=== PATIENT | male | born 1945 | race Caucasian/White ===

== ENCOUNTER 2017-06-21 15:54 | Emergency (ER) | payer OTHER ==
[~2017-06-21] VITALS: Ht 172.7 cm; Wt 88.3 kg
[~2017-06-21 15:54] MED LIST: DEXL60CA4 PO; OMEP40CA PO; POTA-331 PO
[2017-06-21 15:57] VITALS: TEMP 37.2; Ht 172.7 cm; Wt 88.3 kg
[2017-06-21] MEDS ORDERED: CEFTRIAXONE SOD INJ 1 GM ADDVIAL IV STA (16:30)
--- NOTE | 2017-06-21 17:21 | DIAGNOSTIC IMAGING REPORT ---
RIGHT ANKLE 3 VIEWS HISTORY: Right ankle RIGHT, REDNESS/WARMTH/SWELLING COMPARISON: None. FINDINGS: There is no fracture or dislocation. Diffuse soft tissue swelling. 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 No bony erosions. Plantar and posterior calcaneal spurs. No radiopaque foreign bodies. IMPRESSION: Diffuse soft tissue swelling within the right ankle. No fractures. No underlying bony destruction. Electronically signed by: Magen Cai M.D. 06/21/2017 5:20 PM Dictated Date/Time: 06/21/2017 5:18 PM
[2017-06-21 17:29] LABS: BASO % 0.5 %; BASO ABS # 0.04 K/uL (0-0.2); COMPLETE YES; EOS % 2.3 %; HEMATOCRIT 41.9 % (42-52); IG% 0.1 %; LYMPH % 17.6 %; LYMPH ABS # 1.38 K/uL (1.2-3.4); MEAN CELL VOLUME 84.1 fL (80-100); MEAN CORPUSCULAR HEMOGLOBIN 30.7 pg (25-34); MEAN CORPUSCULAR HGB CONC 36.5 g/dl (32-36); MONO % 14.7 %; NEUT % 64.8 %; PLATELET COUNT 227 K/uL (130-400); RED BLOOD COUNT 4.98 M/uL (4.7-6.1); WHITE BLOOD COUNT 7.84 K/uL (4.8-10.8)
[2017-06-21 17:38] LABS: BUN/CREATININE RATIO 10.5 (10-20); C-REACTIVE PROTEIN 9.38 mg/dl (0-0.29); CALCIUM 9.3 mg/dl (8.5-10.1); CREATININE 1.1 mg/dl (0.60-1.40); PARTIAL THROMBOPLASTIN RATIO 1.2; POTASSIUM 2.9 mmol/L (3.5-5.1); PROTHROMBIN TIME (PATIENT) 11.1 SECONDS (9.0-12.0)
[2017-06-21 17:41] LABS: ALB/GLOB RATIO 0.9 (0.9-2)
[2017-06-21] MEDS ORDERED: POTASSIUM CHLORIDE 10 MEQ TABCR PO STA (18:24)
[2017-06-21] MEDS ORDERED: POTA10CA28 PO (18:28)
[2017-06-21] MEDS ORDERED: CEPH500C2 PO (18:28)
[2017-06-21] MEDS ORDERED: SULF800T23 PO (18:28)
--- NOTE | 2017-06-21 18:30 | EMERGENCY ROOM VISIT NOTE ---
ED Visit Note First contact with patient: 16:02 CHIEF COMPLAINT: Right ankle pain, redness and swelling with fever times one day HISTORY OF PRESENT ILLNESS: Patient is a 72-year-old white male with past medical history significant for depression, hypertension and Andino's esophagitis who presents to the emergency department By his from a [facility] [employer] [facility] for evaluation of right ankle pain and fever. His symptoms started yesterday. He noted that his right ankle was sore to the touch, but did not notice any redness or swelling. He also subjectively felt feverish, fatigue and malaise, but did not check his temperature with a thermometer. He did take Tylenol last evening. His got him an ankle brace , which made his symptoms worse. He denies any injury to the ankle. When he woke up this morning, the right ankle continued to be sore and they noted that it was swollen. He again subjectively felt feverish and had chills, but did not check temperature with a thermometer and did not take any medications. Patient's states that he asked for his heavy winter coat because he was so chilled, which prompted her to call the PCP. They were unable to see him, so directed him to either then ED or in urgent care center. They went to the [facility] in [place]. He was found to be febrile there with a temperature of 102.2F orally. He had just taken 650 mg of Tylenol prior to going to the urgent care center. They noted his ankle to be red and warm and swollen and thus referred him to the emergency department. Initially, patient and his denied any history of cellulitis or abscesses, but then, after further questioning he was treated with cephalexin for a sore on the right pretibial region many years ago. The patient has been complaining of dry skin on his legs for some time, and does admit to scratching and rubbing the area. He denies any other joint pain or swelling. No pain radiating up the leg or in the calf. He does have some discomfort with weightbearing. He denies any chest pain, palpitations or shortness of breath. No anorexia, abdominal pain, nausea or vomiting. He denies any urinary symptoms. He has chronic diarrhea, no melena or hematochezia. He rates his discomfort a 6/10. REVIEW OF SYSTEMS: Review of systems as per HPI. All other systems reviewed were negative. 10 systems reviewed. PMH: Electronic medical records are reviewed and summarized as above/below. See Problem List. SOCIAL HISTORY: Patient lives at home with his . Former smoker, quit 20 years ago. He is retired. PHYSICAL EXAM: Vital Signs: Reviewed Nurse's notes. Temperature 37.2C orally. He is not tachycardic. GENERAL: Patient is a pleasant, well-appearing 72 year old white male who is awake and alert and in no acute distress. LUNGS: Clear to auscultation and breath sounds equal, no wheezes, rales, or rhonchi. HEART: Regular rate and rhythm. ABDOMEN: Soft, nontender, no hepatosplenomegaly, or masses. NEUROLOGICAL: Alert and cooperative. Sensory and motor functions grossly intact. INTEGUMENTARY: Examination of the bilateral lower extremities show mild scaling , with several excoriated areas. The skin of the right lower leg/ankle is erythematous, warm and slightly tender to palpation. There is no lymphangitic streaking. No petechiae noted. MUSCULOSKELETAL: The right ankle is circumferentially swollen, erythematous, and edematous. Ankle is moderately tender to palpation over both the medial and the lateral malleolus. Ankle range of motion is full. Distal pulses are intact. Sensation is intact. Right calf is soft and nontender. No palpable cords. No pitting edema. EMERGENCY DEPARTMENT COURSE: The patient was seen and examined as above. His old records were reviewed. IV lock was initiated. Laboratory studies were collected including CBC with differential, sedimentation rate, CRP, coags, CMP, blood cultures 2 and a [id number] lactic acid. X-rays of the right ankle were obtained which noted mild soft tissue swelling, no acute bony abnormality. The patient was given ceftriaxone 1 g IV. Laboratory studies noted a normal white count 7800, no left shift or bandemia. Slight nonspecific elevation of the sedimentation rate at 23 and CRP at 9.38. The patient is noted to be hypokalemic with a potassium of 2.9. No other gross electrolyte abnormalities noted. Renal function is normal. There is no lactic acidosis, lactic is 1.16. Coags are unremarkable. All laboratory and diagnostic imaging studies were reviewed with attending physician who also independently evaluated the patient. He appears to have a localized cellulitis to the right lower leg, I suspect related to his dry skin and excoriations. The patient has been febrile, is afebrile here with antipyretics on board. He is otherwise nontoxic in appearance. It was felt that he could be discharged to home on oral antibiotics, with plan for close follow-up in the emergency department in 24 hours, sooner for worsening symptoms. He was in agreement with this. Differential diagnoses also injured to included cellulitis, superficial thrombophlebitis, DVT, septic joint, acute gouty arthropathy, among others. The patient will return to the emergency department in 24 hours for recheck, and possible repeat dose of IV antibiotics. He certainly should return immediately if his symptoms are worsening. IV lock was left in place in the right hand for follow-up tomorrow. He will be placed on Keflex and Bactrim in the interim. He was encouraged to check his temperature regularly with a thermometer, can use Tylenol and ibuprofen as needed for pain and fever. Patient and his family expressed understanding of this. He was discharged home in good condition. Vital signs are stable at that time. Medication reconciliation: I attest that I have personally reviewed the patient' s current medication list. Blood pressure screening : Patient was found to have normal blood pressure on screening and does not require follow-up. RIGHT ANKLE 3 VIEWS HISTORY: Right ankle RIGHT, REDNESS/WARMTH/SWELLING COMPARISON: None. FINDINGS: There is no fracture or dislocation. Diffuse soft tissue swelling. 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 No bony erosions. Plantar and posterior calcaneal spurs. No radiopaque foreign bodies. IMPRESSION: Diffuse soft tissue swelling within the right ankle. No fractures. No underlying bony destruction. Problem List Medical Problems: (1) Acid reflux Status: Chronic (2) Depressive Disorder Nec Status: Chronic (3) Diarrhea Status: Resolved (4) Diarrhea Status: Resolved (5) Hypertension Nos Status: Chronic (6) Hypokalemia Status: Resolved (7) Near syncope Status: Resolved (8) Scalp laceration Status: Resolved Surgical Problems: (1) Hx of appendectomy Status: Resolved (2) Hx of cholecystectomy Status: Resolved Current/Historical Medications Scheduled Cephalexin Monohydrate (Keflex), 500 MG PO QID Fluoxetine Hcl (Pmdd) (Fluoxetine), 60 MG PO DAILY Hydrochlorothiazide (Hctz), 25 MG PO DAILY Potassium Chloride (Micro-K Ext Rel), 10 MEQ PO BID Sulfa/Trimethoprim (Bactrim Ds 800MG/160MG), 1 TAB PO BID Allergies Coded Allergies: No Known Allergies (Verified , 06/21/17) Vital Signs Date Time Temp Pulse Resp B/P (MAP) Pulse Ox O2 Delivery O2 Flow Rate FiO2 06/21/17 19:55 66 18 136/81 96 06/21/17 19:00 66 18 136/81 96 Room Air 06/21/17 15:57 37.2 76 18 122/77 95 Room Air Laboratory Results 06/21/17 16:55 Red Blood Count 4.98, Mean Corpuscular Volume 84.1, Mean Corpuscular Hemoglobin 30.7, Mean Corpuscular Hemoglobin Concent 36.5, Mean Platelet Volume 10.0, Neutrophils (%) (Auto) 64.8, Lymphocytes (%) (Auto) 17.6, Monocytes (%) (Auto) 14.7, Eosinophils (%) (Auto) 2.3, Basophils (%) (Auto) 0.5, Neutrophils # (Auto ) 5.08, Lymphocytes # (Auto) 1.38, Monocytes # (Auto) 1.15, Eosinophils # (Auto ) 0.18, Basophils # (Auto) 0.04 06/21/17 16:55 Test 06/21/17 16:55 06/21/17 17:04 White Blood Count 7.84 K/uL (4.8-10.8) Red Blood Count 4.98 M/uL (4.7-6.1) Hemoglobin 15.3 g/dL (14.0-18.0) Hematocrit 41.9 % (42-52) Mean Corpuscular Volume 84.1 fL (80-100) Mean Corpuscular Hemoglobin 30.7 pg (25-34) Mean Corpuscular Hemoglobin Concent 36.5 g/dl (32-36) Platelet Count 227 K/uL (130-400) Mean Platelet Volume 10.0 fL (7.4-10.4) Neutrophils (%) (Auto) 64.8 % Lymphocytes (%) (Auto) 17.6 % Monocytes (%) (Auto) 14.7 % Eosinophils (%) (Auto) 2.3 % Basophils (%) (Auto) 0.5 % Neutrophils # (Auto) 5.08 K/uL (1.4-6.5) Lymphocytes # (Auto) 1.38 K/uL (1.2-3.4) Monocytes # (Auto) 1.15 K/uL (0.11-0.59) Eosinophils # (Auto) 0.18 K/uL (0-0.5) Basophils # (Auto) 0.04 K/uL (0-0.2) RDW Standard Deviation 39.1 fL (36.4-46.3) RDW Coefficient of Variation 12.9 % (11.5-14.5) Immature Granulocyte % (Auto) 0.1 % Immature Granulocyte # (Auto) 0.01 K/uL (0.00-0.02) Erythrocyte Sedimentation Rate 23 mm/hr (0-14) Prothrombin Time 11.1 SECONDS (9.0-12.0) Prothromb Time International Ratio 1.0 (0.9-1.1) Activated Partial Thromboplast Time 30.5 SECONDS (21.0-31.0) Partial Thromboplastin Ratio 1.2 Anion Gap 8.0 mmol/L (3-11) Est Creatinine Clear Calc Drug Dose 67.5 ml/min Estimated GFR () 78.4 Estimated GFR (Non- 67.7 BUN/Creatinine Ratio 10.5 (10-20) Calcium Level 9.3 mg/dl (8.5-10.1) Total Bilirubin 1.1 mg/dl (0.2-1) Aspartate Amino Transf (AST/SGOT) 27 U/L (15-37) Alanine Aminotransferase (ALT/SGPT) 39 U/L (12-78) Alkaline Phosphatase 76 U/L (45-117) C-Reactive Protein 9.38 mg/dl (0-0.29) Total Protein 7.7 gm/dl (6.4-8.2) Albumin 3.7 gm/dl (3.4-5.0) Globulin 4.0 gm/dl (2.5-4.0) Albumin/Globulin Ratio 0.9 (0.9-2) Bedside Lactic Acid Venous 1.16 mmol/L (0.90-1.70) Medications Administered Medications (Trade) Dose Ordered Sig/Leonor Route Start Time Stop Time Status Last Admin Dose Admin Ceftriaxone Sodium (Rocephin Inj) 1 gm NOW STAT IV 06/21/17 16:30 10/6/17 16:32 DC 06/21/17 17:33 1 GM Potassium Chloride (Klor-Con M10) 80 meq NOW STAT PO 06/21/17 18:24 06/21/17 18:25 DC 06/21/17 19:46 80 MEQ Departure Information Impression Primary Impression: Cellulitis of right lower extremity Prescriptions Potassium Chloride (Micro-K Ext Rel) 10 Meq Capcr 10 MEQ PO BID, #14 CAP Prov: Keke Fofana PA 06/21/17 Sulfa/Trimethoprim (Bactrim Ds 800MG/160MG) Tab 1 TAB PO BID, #20 TAB Prov: Keke Fofana PA 06/21/17 Cephalexin Monohydrate (KEFLEX) 500 Mg Cap 500 MG PO QID, #40 CAP Prov: Keke Fofana PA 06/21/17 Referrals Pepe Rowe M.D. (PCP) Patient Instructions [facility] Additional Instructions Cephalexin(Keflex) 500mg: Take one pill four times daily for 10 days for your skin infection. All antibiotics can cause diarrhea. If this occurs and you feel worse or it does not resolve in 1-2 days follow up with your doctor or return to the Emergency Department as this could be signs of serious underlying problems. Any medication can cause an allergic reaction, stop the pills immediately and return to the ER for rash, hives, breathing difficulties, or swelling. Trimethoprim-Sulfamethoxazole(Bactrim DS): Take one pill twice daily for 10 days for your skin infection. All antibiotics can cause diarrhea. If this occurs and you feel worse or it does not resolve in 1-2 days follow up with your doctor or return to the Emergency Department as this could be signs of serious underlying problems. Any medication can cause an allergic reaction, stop the pills immediately and return to the ER for rash, hives, breathing difficulties, or swelling. Potassium chloride 10 mEq: Take 1 capsule twice daily for 7 days. Potassium level will need to be rechecked when you follow up with your PCP. Ibuprofen(Motrin, Advil) may be used for fever or pain. Use 600mg every six hours as needed. Take with food. Avoid using more than 2400mg in a 24 hour period. Do not use 2400mg per day for more than three consecutive days without physician direction. Prolonged inappropriate use can lead to stomach upset or ulcers. (AND/OR) Acetaminophen(Tylenol) may be used for fever or pain. Use 1000mg every six hours as needed. Avoid using more than 3000mg in a 24 hour period. Warm compresses to the affected area 4 times daily for 15-20 minutes. Rest and drink plenty of fluids. Continue current medications. Return to the ER in 24 hours for recheck, return immediately for severe pain, uncontrolled fevers, spreading redness, or any worsening of your condition.
[2017-06-21 19:55] VITALS: BP 136/81; PULSE 66; O2SAT 96
[2017-06-22] MEDS ORDERED: HYDR25TA4 PO (23:38)
[2017-06-22] MEDS ORDERED: FLUO20CA20 PO (23:38)
== END 2017-06-21 20:03 | disposition home or self-care (01) ==
LOC: C.EDB 15:55 → C.EDC 20:03
DX: L03.115 Cellulitis of right lower limb (principal); Z87.891 Personal history of nicotine dependence; K21.9 Gastro-esophageal reflux disease without esophagitis; F32.9 Major depressive disorder, single episode, unspecified; I10 Essential (primary) hypertension

== ENCOUNTER 2017-06-22 15:19 | Emergency (ER) | payer OTHER ==
[~2017-06-22] VITALS: Ht 172.7 cm; Wt 88.2 kg
[~2017-06-22 15:19] MED LIST changes: +CEPH500C2 PO; +POTA10CA28 PO; +SULF800T23 PO
[2017-06-22 15:24] VITALS: TEMP 36.5; Ht 172.7 cm; Wt 88.2 kg
[2017-06-22] MEDS ORDERED: CEFTRIAXONE SOD INJ 1 GM ADDVIAL IV STA (15:36)
[2017-06-22 16:56] VITALS: BP 124/80; PULSE 78; O2SAT 98
--- NOTE | 2017-06-22 19:55 | EMERGENCY ROOM VISIT NOTE ---
History First contact with patient: 15:21 Chief Complaint: WOUND RECHECK Stated Complaint: NEED ANTIBIOTICS Nursing Triage Summary: Patient states he has a wound on his right ankle and his is here to get antibiotics. Pt IV in place from yesterday's visit to the ER. History of Present Illness The patient is a 72 year old male who presents to the Emergency Room for a recheck of right ankle cellulitis. The patient was seen in the emergency department yesterday, and administered IV Rocephin, and provided prescriptions for Keflex and Bactrim DS. The reports that she picked up his prescriptions this morning, but did not administer any of the antibiotics because there was no indication on the patient's discharge summary of when he should start the medications. The patient reports that when he awoke this morning, there was no swelling or redness of the ankle. Throughout the day, he reports that the swelling and redness has returned. He does not feel that the redness or swelling is as bad as yesterday. The patient denies any pain or fever. Review of Systems 6 system review was performed and was negative except for pertinent positives and negatives as indicated in history of present illness Past Medical/Surgical History Medical Problems: (1) Acid reflux (2) Depressive Disorder Nec (3) Diarrhea (4) Diarrhea (5) Hypertension Nos (6) Hypokalemia (7) Near syncope (8) Scalp laceration Surgical Problems: (1) Hx of appendectomy (2) Hx of cholecystectomy Social History Smoking Status: Former Smoker Alcohol Use: none Marital Status: Housing Status: lives with significant other Occupation Status: retired Current/Historical Medications Scheduled Cephalexin Monohydrate (Keflex), 500 MG PO QID Fluoxetine Hcl (Pmdd) (Fluoxetine), 60 MG PO DAILY Hydrochlorothiazide (Hctz), 25 MG PO DAILY Potassium Chloride (Micro-K Ext Rel), 10 MEQ PO BID Sulfa/Trimethoprim (Bactrim Ds 800MG/160MG), 1 TAB PO BID Physical Exam Vital Signs Date Time Temp Pulse Resp B/P (MAP) Pulse Ox O2 Delivery O2 Flow Rate FiO2 06/22/17 16:56 78 18 124/80 98 06/22/17 15:24 36.5 80 17 94 Room Air Physical Exam CONSTITUTIONAL: Healthy and well nourished. Alert and oriented X 3 with positive affect. MUSCULOSKELETAL: Compared to my exam yesterday, the patient does have slightly worsening edema, but the erythema has improved. There is no significant extension of the erythema beyond the demarcated borders. Pedal pulses are intact. No proximal lymphangitic streaking. INTEGUMENTARY: No rash or other significant dermatologic conditions noted. NEUROLOGIC: No focal neurologic deficits noted. Medical Decision & Procedures Medications Administered Medications (Trade) Dose Ordered Sig/Leonor Route Start Time Stop Time Status Last Admin Dose Admin Ceftriaxone Sodium (Rocephin Inj) 1 gm NOW STAT IV 06/22/17 15:36 06/22/17 15:38 DC 06/22/17 16:16 1 GM ED Course Patient history and physical exam were performed. Nurse's notes were reviewed. Vital signs were reviewed and were normal. I did examine the patient yesterday at the request of Mackenzie Fofana PA-C. It does appear that the patient is having improvement of his infection, but does have some dependent edema. The patient was encouraged to keep the legs elevated above his heart. The patient was administered an additional Rocephin 1 g IV infusion, then his IV was removed. The patient was encouraged to continue with his Bactrim DS and Keflex antibiotics as previously prescribed. I did encourage him to follow-up with his family doctor in 48 hours for recheck, or return to the emergency department for any signs of worsening infection. The patient was happy with plan of care, and denied any pain at the time of discharge. Medical Decision Blood Pressure Screening Patient's blood pressure: Normal blood pressure Impression Primary Impression: Cellulitis of right ankle Departure Information Dispostion Home / Self-Care Condition GOOD Referrals Pepe Rowe M.D. (PCP) No Doctor, Assigned Forms HOME CARE DOCUMENTATION FORM, IMPORTANT VISIT INFORMATION Patient Instructions My [facility] Additional Instructions Continue with your Keflex and Bactrim DS antibiotics as previously prescribed. Take your next Keflex dosing at bedtime, and then take both medicines in the morning when you wake up. Keep legs elevated above heart to help with swelling. Apply a skin moisturizer (Cetaphil) to legs. It is best to apply any moisturizer when they are still damp after showering. Follow-up with your PCP for recheck in 48 hours. Return to the emergency department for any progressively worsening redness, swelling, pain, red streaks or fever.
[2017-06-22] MEDS ORDERED: FLUO20CA20 PO (23:38)
[2017-06-22] MEDS ORDERED: HYDR25TA4 PO (23:38)
== END 2017-06-22 16:57 | disposition home or self-care (01) ==
LOC: C.EDB 15:21 → C.EDD 16:57
DX: L03.115 Cellulitis of right lower limb (principal); I10 Essential (primary) hypertension; F32.9 Major depressive disorder, single episode, unspecified; Z87.891 Personal history of nicotine dependence; Z90.49 Acquired absence of other specified parts of digestive tract; Z90.89 Acquired absence of other organs; Z79.899 Other long term (current) drug therapy